=== PATIENT | female | born 1970 | race Caucasian/White ===

== ENCOUNTER 2018-02-16 17:45 | Inpatient (IN) | payer BC, OTHER ==
[~2018-02-16] VITALS: Ht 157.5 cm; Wt 102.1 kg
[2018-02-16] MEDS ORDERED: ONDANSETRON 4 MG/2 ML VIAL IM PRN (19:00)
[2018-02-16] MEDS ORDERED: MAGNESIUM HYDROXIDE 30 ML LIQUID UDC PO PRN (19:00)
[2018-02-16] MEDS ORDERED: MIRALAX 17 GM POWD.PACK PO PRN (19:00)
[2018-02-16] MEDS ORDERED: MAG HYDROX/AL HYDROX/SIMETH 30 ML LIQUID UDC PO PRN (19:00)
[2018-02-16] MEDS ORDERED: LORAZEPAM 2 MG/1 ML VIAL IM PRN (19:00)
[2018-02-16] MEDS ORDERED: LOPERAMIDE HCL 2 MG CAPSULE PO PRN (19:00)
[2018-02-16] MEDS ORDERED: LORAZEPAM 1 MG TABLET PO PRN ×2 (19:00)
[2018-02-16] MEDS ORDERED: ACETAMINOPHEN 325 MG TABLET PO PRN (19:00)
[2018-02-16] MEDS ORDERED: DICYCLOMINE HCL 20 MG TABLET PO PRN (19:00)
[2018-02-16 19:21] LABS: *URINE HCG, QUAL NEGATIVE (NEGATIVE)
[2018-02-16 19:25] LABS: BASOPHILS # (AUTO) 0.1 K/uL (0.0-8.0); BASOPHILS % (AUTO) 0.6 % (0.0-2.0); EOSINOPHILS % (AUTO) 0.3 % (0.0-7.0); HEMATOCRIT 42.6 % (31.2-41.9); HEMOGLOBIN 14.4 g/dL (10.9-14.3); LYMPHOCYTES # (AUTO) 2.1 K/uL (20.0-40.0); LYMPHOCYTES % (AUTO) 17.3 % (20.5-51.5); MEAN CORPUSCULAR HEMOGLOBIN 30.5 uug (24.7-32.8); MEAN CORPUSCULAR HGB CONC 34 g/dL (32.3-35.6); MEAN CORPUSCULAR VOLUME 90.6 fL (75.5-95.3); MONOCYTES # (AUTO) 1.2 K/uL (2.0-10.0); MONOCYTES % (AUTO) 9.8 % (0.0-11.0); NEUTROPHILS # (AUTO) 8.6 K/uL (1.8-8.9); PLATELET COUNT (AUTO) 375 K/uL (179-408)
[2018-02-16 19:33] LABS: *AMPHETAMINE, URINE NEGATIVE (NEGATIVE); *BARBITURATE, URINE NEGATIVE (NEGATIVE); *CANNABINOID, URINE NEGATIVE (NEGATIVE); *COCCAINE, URINE NEGATIVE (NEGATIVE); *OPIATE, URINE NEGATIVE (NEGATIVE); *PHENCYCLIDINE SCREEN,URINE NEGATIVE (NEGATIVE)
[2018-02-16 20:18] VITALS: BP 163/104
[2018-02-16] MEDS ORDERED: THIAMINE HCL 200 MG/2 ML VIAL IM ONE (20:26)
[2018-02-16 20:31] LABS: BILIRUBIN,TOTAL 0.6 mg/dL (0.2-1.0); CREATININE 1.3 mg/dL (0.6-1.3); MAGNESIUM 1.8 mg/dL (1.8-2.4); POTASSIUM 3.6 mmol/L (3.5-5.1); TOTAL PROTEIN, SERUM 7.7 g/dL (6.4-8.2)
[2018-02-16] MEDS: diphenhydrAMINE 50 MG CAPSULE PO PRN (20:34)
[2018-02-16] MEDS: CLONIDINE HCL 0.1 MG TABLET PO PRN (20:34)
[2018-02-16] MEDS ORDERED: BUPR-51 PO (20:45)
[2018-02-16] MEDS ORDERED: LORA10TA7 PO (20:45)
[2018-02-16] MEDS ORDERED: DULO60CA45 PO (20:45)
[2018-02-16] MEDS ORDERED: RANI-563 PO (20:45)
[2018-02-16] MEDS ORDERED: HYDR25TA4 PO (20:45)
[2018-02-16 20:51] LABS: THYROID STIMULATING HORMONE 6.72 mIU/mL (0.358-3.740)
[2018-02-16] MEDS: ONDANSETRON ODT 4 MG TAB.RAPDIS SL PRN (20:51)
[2018-02-16] MEDS ORDERED: PANTOPRAZOLE SODIUM 40 MG VIAL IV ONE (21:00)
[2018-02-16] MEDS ORDERED: LORAZEPAM 1 MG TABLET PO SCH (21:00)
[2018-02-16] MEDS: IV NS 1000 ML 1,000 ML IV PRN (22:38)
[2018-02-17 00:15] VITALS: BP 141/94
[2018-02-17] MEDS ORDERED: hydrALAZINE HCL 50 MG TABLET PO ONE (04:00)
[2018-02-17 04:01] VITALS: BP 162/102
[2018-02-17] MEDS: IV NS 1000 ML 1,000 ML IV PRN (07:03)
[2018-02-17] MEDS: LORAZEPAM 1 MG TABLET PO SCH ×3 (08:45→21:36)
[2018-02-17] MEDS: FOLIC ACID 1 MG TABLET PO SCH (08:45)
[2018-02-17] MEDS: THIAMINE HCL 100 MG TABLET PO SCH (08:45)
[2018-02-17] MEDS: MULTIVITAMINS,THERAPEUTIC TABLET PO SCH (08:45)
[2018-02-17 08:53] VITALS: BP 151/91
[2018-02-17] MEDS: HYDROCHLOROTHIAZIDE 25 MG PO SCH (08:56)
[2018-02-17] MEDS: RANITIDINE 150 MG PO SCH ×2 (08:56→16:54)
[2018-02-17] MEDS ORDERED: TUBERCULIN,PURIF.PROT.DERIV. 5 TU/0.1 ML TEST ID ONE (09:00)
[2018-02-17 12:44] VITALS: BP 150/92
[2018-02-17] MEDS: CLONIDINE HCL 0.1 MG TABLET PO PRN (12:53)
[2018-02-17] MEDS: LOPERAMIDE HCL 2 MG CAPSULE PO PRN (14:28)
[2018-02-17 16:55] VITALS: BP 132/81
[2018-02-17] MEDS ORDERED: hydrALAZINE HCL 50 MG TABLET PO PRN (18:30)
[2018-02-17 20:22] VITALS: BP 132/82
[2018-02-18 00:37] VITALS: BP 148/84
[2018-02-18 04:31] VITALS: BP 139/82
[2018-02-18 08:00] VITALS: BP 146/87
[2018-02-18 08:06] LABS: BASOPHILS # (AUTO) 0.1 K/uL (0.0-8.0); BASOPHILS % (AUTO) 0.8 % (0.0-2.0); EOSINOPHILS # (AUTO) 0.2 K/uL (0.0-0.7); EOSINOPHILS % (AUTO) 2.8 % (0.0-7.0); LYMPHOCYTES # (AUTO) 1.9 K/uL (20.0-40.0); LYMPHOCYTES % (AUTO) 22.2 % (20.5-51.5); MEAN CORPUSCULAR HEMOGLOBIN 30.9 uug (24.7-32.8); MEAN CORPUSCULAR HGB CONC 34 g/dL (32.3-35.6); MEAN CORPUSCULAR VOLUME 90.4 fL (75.5-95.3); MONOCYTES # (AUTO) 0.9 K/uL (2.0-10.0); MONOCYTES % (AUTO) 9.9 % (0.0-11.0); NEUTROPHILS # (AUTO) 5.6 K/uL (1.8-8.9); NEUTROPHILS % (AUTO) 64.3 % (38.5-71.5); RED BLOOD CELL COUNT(AUTO) 3.91 MIL/uL (3.63-4.92)
[2018-02-18 08:17] LABS: BILIRUBIN,DIRECT 0.1 mg/dL (0.0-0.2); BILIRUBIN,TOTAL 0.5 mg/dL (0.2-1.0); CREATININE 1.1 mg/dL (0.6-1.3); MAGNESIUM 1.6 mg/dL (1.8-2.4); PHOSPHOROUS 2.7 mg/dL (2.5-4.9); TOTAL PROTEIN, SERUM 6.6 g/dL (6.4-8.2)
[2018-02-18 08:22] LABS: HEMATOCRIT 35.4 % (31.2-41.9); HEMOGLOBIN 12.1 g/dL (10.9-14.3); WHITE BLOOD COUNT (AUTO) 8.6 K/uL (3.8-11.8)
[2018-02-18 08:23] LABS: PLATELET COUNT (AUTO) 255 K/uL (179-408)
[2018-02-18 08:36] LABS: THYROID STIMULATING HORMONE 7.3 mIU/mL (0.358-3.740)
[2018-02-18] MEDS: LOPERAMIDE HCL 2 MG CAPSULE PO PRN (09:23)
[2018-02-18] MEDS: buPROPion XL 150 MG TAB.SR.24H PO SCH (09:24)
[2018-02-18] MEDS: MULTIVITAMINS,THERAPEUTIC TABLET PO SCH (09:24)
[2018-02-18] MEDS: RANITIDINE 150 MG PO SCH ×2 (09:24→16:43)
[2018-02-18] MEDS: THIAMINE HCL 100 MG TABLET PO SCH (09:24)
[2018-02-18] MEDS: LORAZEPAM 1 MG TABLET PO SCH ×2 (09:24→14:38)
[2018-02-18] MEDS: DULOXETINE 60 MG CAPSULE.DR PO SCH (09:24)
[2018-02-18] MEDS: FOLIC ACID 1 MG TABLET PO SCH (09:24)
[2018-02-18] MEDS: HYDROCHLOROTHIAZIDE 25 MG PO SCH (09:25)
[2018-02-18 12:13] VITALS: BP 151/97
[2018-02-18] MEDS: CLONIDINE HCL 0.1 MG TABLET PO PRN (12:18)
[2018-02-18] MEDS ORDERED: MAGNESIUM OXIDE 400 MG TABLET PO ONE (12:30)
[2018-02-18] MEDS ORDERED: POTASSIUM CHLORIDE 20 MEQ TAB.PRT.SR PO ONE (12:30)
[2018-02-18 13:06] LABS: HEPATITIS B SURFACE AG Negative (Negative)
[2018-02-18] MEDS: ONDANSETRON ODT 4 MG TAB.RAPDIS SL PRN (14:38)
[2018-02-18 16:00] VITALS: BP 124/86
[2018-02-18 20:00] VITALS: BP 139/80
[2018-02-18] MEDS ORDERED: LORAZEPAM 1 MG TABLET PO SCH (21:00)
[2018-02-18] MEDS: diphenhydrAMINE 50 MG CAPSULE PO PRN (21:20)
[2018-02-19] VITALS: BP 135/82
[2018-02-19 04:00] VITALS: BP 137/85
[2018-02-19] MEDS: FOLIC ACID 1 MG TABLET PO SCH (08:35)
[2018-02-19] MEDS: LORAZEPAM 1 MG TABLET PO SCH ×3 (08:35→21:01)
[2018-02-19] MEDS: DULOXETINE 60 MG CAPSULE.DR PO SCH (08:35)
[2018-02-19] MEDS: MULTIVITAMINS,THERAPEUTIC TABLET PO SCH (08:35)
[2018-02-19] MEDS: RANITIDINE 150 MG PO SCH ×2 (08:35→16:31)
[2018-02-19] MEDS: THIAMINE HCL 100 MG TABLET PO SCH (08:35)
[2018-02-19] MEDS: buPROPion XL 150 MG TAB.SR.24H PO SCH (08:35)
[2018-02-19] MEDS: HYDROCHLOROTHIAZIDE 25 MG PO SCH (08:36)
[2018-02-19 08:57] VITALS: BP 151/93
[2018-02-19] MEDS ORDERED: LORAZEPAM 1 MG TABLET PO SCH (09:00)
[2018-02-19] MEDS ORDERED: AMLODIPINE 5 MG TABLET PO SCH (09:00)
[2018-02-19] MEDS ORDERED: HYDROCORTISONE 1% CREAM 30 GM TUBE TP PRN (10:30)
[2018-02-19 12:23] VITALS: BP 148/92
[2018-02-19] MEDS ORDERED: GABAPENTIN 100 MG CAPSULE PO SCH (13:00)
[2018-02-19] MEDS ORDERED: PROPRANOLOL HCL 20 MG TABLET PO SCH (13:00)
[2018-02-19] MEDS: ONDANSETRON ODT 4 MG TAB.RAPDIS SL PRN (14:50)
[2018-02-19 16:55] VITALS: BP 121/70
[2018-02-19 20:00] VITALS: BP 116/71
[2018-02-19] MEDS: GABAPENTIN 100 MG CAPSULE PO SCH (21:01)
[2018-02-19] MEDS: PROPRANOLOL HCL 20 MG TABLET PO SCH (21:01)
[2018-02-20] VITALS: BP 109/76
[2018-02-20 08:00] VITALS: BP 135/85
[2018-02-20] MEDS: MULTIVITAMINS,THERAPEUTIC TABLET PO SCH (08:09)
[2018-02-20] MEDS: GABAPENTIN 100 MG CAPSULE PO SCH ×2 (08:09→20:48)
[2018-02-20] MEDS: THIAMINE HCL 100 MG TABLET PO SCH (08:10)
[2018-02-20] MEDS: PROPRANOLOL HCL 20 MG TABLET PO SCH ×2 (08:10→20:48)
[2018-02-20] MEDS: DULOXETINE 60 MG CAPSULE.DR PO SCH (08:10)
[2018-02-20] MEDS: FOLIC ACID 1 MG TABLET PO SCH (08:10)
[2018-02-20] MEDS: IBUPROFEN 400 MG TABLET PO PRN ×2 (08:10→17:18)
[2018-02-20] MEDS: RANITIDINE 150 MG PO SCH ×2 (08:10→17:18)
[2018-02-20] MEDS: buPROPion XL 150 MG TAB.SR.24H PO SCH (08:10)
[2018-02-20] MEDS: HYDROCHLOROTHIAZIDE 25 MG PO SCH (08:11)
[2018-02-20] MEDS ORDERED: LORAZEPAM 1 MG TABLET PO SCH (09:00)
[2018-02-20 12:00] VITALS: BP 127/64
[2018-02-20] MEDS ORDERED: PROP20TA19 PO (12:44)
[2018-02-20] MEDS ORDERED: IBUP-1953 PO (12:44)
[2018-02-20] MEDS ORDERED: DIPH50CA37 PO (12:44)
[2018-02-20] MEDS ORDERED: GABA-532 PO (12:44)
[2018-02-20 16:00] VITALS: BP 102/55
[2018-02-20 20:00] VITALS: BP 128/76
[2018-02-21 08:00] VITALS: BP 125/67
[2018-02-21] MEDS: MULTIVITAMINS,THERAPEUTIC TABLET PO SCH (08:10)
[2018-02-21] MEDS: THIAMINE HCL 100 MG TABLET PO SCH (08:10)
[2018-02-21 08:11] VITALS: BP 125/67
[2018-02-21] MEDS: buPROPion XL 150 MG TAB.SR.24H PO SCH (08:11)
[2018-02-21] MEDS: FOLIC ACID 1 MG TABLET PO SCH (08:11)
[2018-02-21] MEDS: DULOXETINE 60 MG CAPSULE.DR PO SCH (08:11)
[2018-02-21] MEDS: PROPRANOLOL HCL 20 MG TABLET PO SCH (08:11)
[2018-02-21] MEDS: HYDROCHLOROTHIAZIDE 25 MG PO SCH (08:20)
[2018-02-21] MEDS: GABAPENTIN 100 MG CAPSULE PO SCH (08:20)
[2018-02-21] MEDS: RANITIDINE 150 MG PO SCH (08:22)
== END 2018-02-21 10:31 | disposition other institution (70) | DRG 895 ==
LOC: SRC 18:04
PROVIDERS: ADMIT Internal Medicine; ATTEND Internal Medicine
PROC: HZ2ZZZZ Detoxification Services for Substance Abuse Treatment (ICD-10-PCS; principal; 2018-02-16)
PROC: HZ31ZZZ Individual Counseling for Substance Abuse Treatment, Behavioral (ICD-10-PCS; 2018-02-18)
PROC: HZ41ZZZ Group Counseling for Substance Abuse Treatment, Behavioral (ICD-10-PCS; 2018-02-19)
DX: F10.230 Alcohol dependence with withdrawal, uncomplicated (principal); K70.10 Alcoholic hepatitis without ascites; E83.42 Hypomagnesemia; I15.9 Secondary hypertension, unspecified; F32.1 Major depressive disorder, single episode, moderate; Z68.41 Body mass index [BMI] 40.0-44.9, adult; E66.9 Obesity, unspecified; Y90.5 Blood alcohol level of 100-119 mg/100 ml; Z81.1 Family history of alcohol abuse and dependence; Z82.49 Family history of ischemic heart disease and other diseases of the circulatory system; K21.9 Gastro-esophageal reflux disease without esophagitis; Z91.89 Other specified personal risk factors, not elsewhere classified; Z81.3 Family history of other psychoactive substance abuse and dependence; E87.6 Hypokalemia; E86.0 Dehydration; E07.81 Sick-euthyroid syndrome; F13.90 Sedative, hypnotic, or anxiolytic use, unspecified, uncomplicated; D72.829 Elevated white blood cell count, unspecified; R73.9 Hyperglycemia, unspecified
CPT/HCPCS: 36415; 70030-TC; 80307; 83690; 83735; 84100; 84443; 84703; 85025; 86580; 86592; 86705; 86803; 87340; 87806; A4663; C9113; G0480; J3411; J7030; Q0162; Q0163